=== PATIENT | male | born 1965 | race Caucasian/White ===

== ENCOUNTER 2025-03-09 10:19 | Emergency (ER) | payer MEDICARE, MEDICAID ==
[~2025-03-09] VITALS: Ht 188 cm; Wt 85.0 kg
[2025-03-09 10:21] VITALS: BP 138/93; PULSE 78; RESP 16; TEMP 98.2; O2SAT 98
[2025-03-09] MEDS ORDERED: SILV50CR31 TOP (11:43)
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
== END 2025-03-09 12:26 | disposition home or self-care (01) ==
LOC: ER 10:20
DX: T21.22XA Burn of second degree of abdominal wall, initial encounter (principal); Z79.899 Other long term (current) drug therapy; X08.8XXA Exposure to other specified smoke, fire and flames, initial encounter; Y93.89 Activity, other specified; Y92.89 Other specified places as the place of occurrence of the external cause; Y99.8 Other external cause status
CPT/HCPCS: 99282